=== PATIENT | male | born 1975 | race African-American/Black ===

== ENCOUNTER 2017-06-08 20:46 | Emergency (ER) | payer MEDICAID ==
[~2017-06-08] VITALS: Ht 177.8 cm; Wt 78.0 kg
[~2017-06-08 20:46] MED LIST: CATAPRES0.1 MG ORAL; FUROSEMIDE20 M1 ORAL
[2017-06-08 21:00] VITALS: BP 130/89
[2017-06-08] MEDS ORDERED: Nitroglycerin Subl 0.4mg tab SL PRN (21:45)
[2017-06-08 21:58] LABS: BASOPHILS % (AUTO) 1.5 % (0.0-2.0); EOSINOPHILS % (AUTO) 2.5 % (0.0-3.0); HEMATOCRIT 39.6 % (42.0-52.0); HEMOGLOBIN 11.7 G/DL (14.2-18.0); LYMPHOCYTES % (AUTO) 32.9 % (20.0-45.0); MEAN CORPUSCULAR VOLUME 83 FL (80-99); NEUTROPHILS % (AUTO) 57.1 % (45.0-75.0); PLATELET COUNT 333 K/UL (150-450); RED BLOOD COUNT 4.76 M/UL (4.70-6.10); RED CELL DISTRIBUTION WIDTH 18.4 % (11.6-14.8); WHITE BLOOD COUNT 8.5 K/UL (4.8-10.8)
[2017-06-08 22:05] VITALS: BP 127/87
[2017-06-08 22:11] LABS: ANION GAP 8 mmol/L (5-15); BLOOD UREA NITROGEN 22 mg/dL (7-18); CALCIUM 8.9 MG/DL (8.5-10.1); CARBON DIOXIDE 30 MMOL/L (21-32); CHLORIDE 105 MMOL/L (98-107); CREATININE 1.4 MG/DL (0.55-1.30); POTASSIUM 3.6 MMOL/L (3.5-5.1); SODIUM 143 MMOL/L (136-145)
[2017-06-08 22:28] LABS: ALANINE AMINOTRANSFERASE 34 U/L (12-78); ALBUMIN 2.9 G/DL (3.4-5.0); ALBUMIN/GLOBULIN RATIO 0.7 (1.0-2.7); ALKALINE PHOSPHATASE 75 U/L (46-116); ASPARTATE AMINO TRANSFERASE 31 U/L (15-37); BILIRUBIN,TOTAL 0.4 MG/DL (0.2-1.0); CKMB 1.2 NG/ML (0.0-3.6); CREATINE KINASE 148 U/L (26-308)
[2017-06-08] MEDS ORDERED: POTASSIUM CHLO10 MEQ ORAL (22:41)
[2017-06-08] MEDS ORDERED: FUROSEMIDE20 M1 ORAL (22:43)
[2017-06-08 22:50] VITALS: BP 128/87
[2017-06-08 23:00] VITALS: BP 128/87
--- NOTE | 2017-06-09 09:10 | Diagnostic Imaging Report ---
Indication: Shortness of breath Technique: One view of the chest Comparison: none Findings: The heart is enlarged. The lungs and pleural spaces are clear. The bones are unremarkable. Upper mediastinum is unremarkable Impression: Cardiomegaly. No acute process
--- NOTE | 2017-06-09 13:26 | Emergency Room Report ---
History of Present Illness General Chief Complaint: Chest Pain Source: Patient Present Illness HPI Patient is a 41-year-old male presented after having increased chest pain and difficulty breathing. Patient was having prior history of CVA as well as prior history of cardiac disease. He reports having previously been on Lasix but having been out of his medications for several days. patient states that he had been recently admitted to [facility]. Patient denies any fever. He reported having some difficulty with breathing. He denies any fever he reported having some leg swelling. Allergies: Coded Allergies: ACETAMINOPHEN (Verified Allergy, Unknown, 06/08/17) HALOPERIDOL (Verified Allergy, Unknown, 06/08/17) HYDROCODONE (Verified Allergy, Unknown, 06/08/17) LITHIUM (Verified Allergy, Unknown, 06/08/17) Patient History Past Medical History: see triage record Reviewed Nursing Documentation: PMH: Agreed, PSxH: Agreed Nursing Documentation-PMH Hx Cardiac Problems: Yes - chf History Of Psychiatric Problem: Yes Review of Systems All Other Systems: negative except mentioned in HPI Physical Exam Vital Signs Date Time Temp Pulse Resp B/P (MAP) Pulse Ox O2 Delivery O2 Flow Rate FiO2 06/08/17 20:38 98.1 87 16 125/83 100 Room Air Sp02 EP Interpretation: reviewed, normal General Appearance: normal inspection, well appearing, no apparent distress, alert, GCS 15 Head: atraumatic ENT: normal ENT inspection, hearing grossly normal, normal voice Neck: normal inspection, full range of motion, supple, no bony tend Respiratory: normal inspection, lungs clear, normal breath sounds, no respiratory distress, no retraction, no wheezing Cardiovascular #1: regular rate, rhythm, no edema Gastrointestinal: normal inspection, normal bowel sounds, non tender, soft, no guarding, no hernia Genitourinary: no CVA tenderness Musculoskeletal: normal inspection, back normal, normal range of motion Neurologic: normal inspection, alert, oriented x3, responsive, printed circuit boards beveler III-XII nml as tested, speech normal, motor weakness - left upper extremity Psychiatric: normal inspection, judgement/insight normal, mood/affect normal Skin: normal inspection, normal color, no rash Medical Decision Making Diagnostic Impression: Primary Impression: Chest pain Additional Impressions: CHF exacerbation Noncompliance with medication regimen ER Course Patient presented for chest pain.Differential diagnosis included but was not limited to acute coronary syndrome, pulmonary embolism, pneumonia, aortic dissection, shingles, pneumothorax, aortic dissection, esophageal rupture, pericarditis. Because of complexity of patient's case laboratory testing and imaging studies were ordered. EKG interpreted by me showed normal sinus rhythm with diffuse T wave inversion. I laboratory studies showed evidence of elevation of his BNP with normal troponin. The patient was given IV Lasix with large amount urine production. The patient subsequently stated that he felt better. Patient discharged home. 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 Chest x-ray one view read by radiology showed cardiac enlargement without evidence of infiltrate or pulmonary edema. The patient is advised to follow up with primary care doctor in 1-2 days. Patient is advised to return if any worsening condition or if any changes in status that are concerning. This report is dictated with [employer] mainspring strip inspector software which may occasionally lead to discrepancies related to use of this software. Labs Test 06/08/17 21:25 06/08/17 22:25 White Blood Count 8.5 K/UL (4.8-10.8) Red Blood Count 4.76 M/UL (4.70-6.10) Hemoglobin 11.7 G/DL (14.2-18.0) Hematocrit 39.6 % (42.0-52.0) Mean Corpuscular Volume 83 FL (80-99) Mean Corpuscular Hemoglobin 24.6 PG (27.0-31.0) Mean Corpuscular Hemoglobin Concent 29.6 G/DL (32.0-36.0) Red Cell Distribution Width 18.4 % (11.6-14.8) Platelet Count 333 K/UL (150-450) Mean Platelet Volume 6.5 FL (6.5-10.1) Neutrophils (%) (Auto) 57.1 % (45.0-75.0) Lymphocytes (%) (Auto) 32.9 % (20.0-45.0) Monocytes (%) (Auto) 6.0 % (1.0-10.0) Eosinophils (%) (Auto) 2.5 % (0.0-3.0) Basophils (%) (Auto) 1.5 % (0.0-2.0) Sodium Level 143 MMOL/L (136-145) Potassium Level 3.6 MMOL/L (3.5-5.1) Chloride Level 105 MMOL/L (98-107) Carbon Dioxide Level 30 MMOL/L (21-32) Anion Gap 8 mmol/L (5-15) Blood Urea Nitrogen 22 mg/dL (7-18) Creatinine 1.4 MG/DL (0.55-1.30) Estimat Glomerular Filtration Rate 56.1 mL/min (>60) Glucose Level 83 MG/DL (74-106) Calcium Level 8.9 MG/DL (8.5-10.1) Total Bilirubin 0.4 MG/DL (0.2-1.0) Aspartate Amino Transf (AST/SGOT) 31 U/L (15-37) Alanine Aminotransferase (ALT/SGPT) 34 U/L (12-78) Alkaline Phosphatase 75 U/L (46-116) Total Creatine Kinase 148 U/L (26-308) Creatine Kinase MB 1.2 NG/ML (0.0-3.6) Creatine Kinase MB Relative Index 0.8 Troponin I 0.018 ng/mL (0.000-0.056) Pro-B-Type Natriuretic Peptide 2936 pg/mL (0-125) Total Protein 6.9 G/DL (6.4-8.2) Albumin 2.9 G/DL (3.4-5.0) Globulin 4.0 g/dL Albumin/Globulin Ratio 0.7 (1.0-2.7) Urine Opiates Screen Negative (NEGATIVE) Urine Barbiturates Screen Negative (NEGATIVE) Phencyclidine (PCP) Screen Negative (NEGATIVE) Urine Amphetamines Screen Negative (NEGATIVE) Urine Benzodiazepines Screen Negative (NEGATIVE) Urine Cocaine Screen Negative (NEGATIVE) Urine Marijuana (THC) Screen Negative (NEGATIVE) Last Vital Signs Date Time Temp Pulse Resp B/P (MAP) Pulse Ox O2 Delivery O2 Flow Rate FiO2 06/08/17 23:00 87 16 128/87 100 Room Air 06/08/17 22:50 98.1 Status: improved Disposition: HOME, SELF-CARE Condition: Stable Scripts Furosemide* (LASIX*) 20 Mg Tablet 20 MG ORAL DAILY, #14 TAB Prov: Ricki Maki 06/08/17 Potassium Chloride* (K-DUR*) 10 Meq Capsule.er 10 MEQ ORAL DAILY, #7 TAB 0 Refills Prov: Ricki Maki 06/08/17 Referrals: NOT CHOSEN IPA/MD,REFERRING (PCP) Patient Instructions: Nonspecific Chest Pain Ricki Maki Jun 09, 2017 13:26
--- NOTE | 2017-06-10 19:08 | Cardiology Report ---
APPROVED REPORT EKG Measurement Heart [id number] Normal sinus rhythm Possible Left atrial enlargement T wave abnormality, consider inferolateral ischemia Abnormal ECG
== END 2017-06-08 23:10 | disposition home or self-care (01) ==
LOC: EDBD 20:46 → EMR 21:01
DX: R07.9 Chest pain, unspecified (principal); Z88.6 Allergy status to analgesic agent; Z88.8 Allergy status to other drugs, medicaments and biological substances; I50.9 Heart failure, unspecified; Z91.14 Patient's other noncompliance with medication regimen
CPT/HCPCS: 36415; 71045; 80053; 80307; 82550; 82553; 83880; 84484; 85025; 93005; 96374; 99284; J1940

== ENCOUNTER 2017-07-12 23:34 | Emergency (ER) | payer MEDICAID ==
[~2017-07-12] VITALS: Ht 170.2 cm; Wt 82.6 kg
[~2017-07-12 23:34] MED LIST changes: +POTASSIUM CHLO10 MEQ ORAL
--- NOTE | 2017-07-12 23:43 | Emergency Room Report ---
History of Present Illness General Source: Patient Present Illness HPI 41year-old male brought in by EMS where she will chief complaint of shortness of breath and "my CHF". Patient noncompliant with Lasix 40 mg last couple of days. Denies any worsening of ankle or leg swelling. Smokes marijuana just recently but no cocaine use. lungs ctab per EMS. [facility] called and said patient had JVD, however EMS denied that they ever told that to [facility]. Got nitro and ASA from EMS EMS rhythm strip did not show STEMI. Allergies: Coded Allergies: HALOPERIDOL (Verified Allergy, Unknown, 07/12/17) LITHIUM (Verified Allergy, Unknown, 07/12/17) Patient History Past Medical History: CHF Past Surgical History: none Pertinent Family History: none Social History: Reports: smoking, drug use Immunizations: UTD Reviewed Nursing Documentation: PMH: Agreed, PSxH: Agreed Review of Systems All Other Systems: negative except mentioned in HPI Physical Exam Sp02 EP Interpretation: reviewed, normal General Appearance: normal inspection, well appearing, no apparent distress, alert, GCS 15, non-toxic Head: normocephalic, atraumatic Eyes: bilateral eye PERRL, bilateral eye EOMI ENT: normal ENT inspection, hearing grossly normal, normal pharynx, no angioedema, normal voice, TMs + canals normal, uvula midline, moist mucus membranes Neck: normal inspection, full range of motion, supple, thyroid normal, no meningismus, no bony tend Respiratory: normal inspection, lungs clear, normal breath sounds, no rhonchi, no respiratory distress, no retraction, no accessory muscle use, no wheezing, speaking full sentences Cardiovascular #1: regular rate, rhythm, no edema, no JVD, normal capillary refill Gastrointestinal: normal inspection, normal bowel sounds, non tender, soft, no mass, no peritonitis, non-distended, no guarding, no hernia, no pulsatile mass Genitourinary: no CVA tenderness Musculoskeletal: normal inspection, back normal, normal range of motion, no calf tenderness, pelvis stable, Mary's Sign negative, other - L>R 1+ pitting edema to mid-conrad Neurologic: normal inspection, alert, oriented x3, responsive, shuttle buggy operator III-XII nml as tested, motor strength/tone normal, cerebellar normal, normal gait, speech normal Psychiatric: normal inspection, judgement/insight normal, mood/affect normal, no suicidal/homicidal ideation, no delusions Skin: normal inspection, normal color, no rash Lymphatic: normal inspection, no adenopathy Medical Decision Making Diagnostic Impression: Primary Impression: SOB (shortness of breath) Additional Impressions: CHF (congestive heart failure) Qualified Codes: I50.9 - Heart failure, unspecified CKD (chronic kidney disease) Qualified Codes: N18.9 - Chronic kidney disease, unspecified ER Course Got ASA and nitro from EMS BP in ED 132/80 Was given Lasix 40mg oral ECG with TWI in V3-6. 2, 3, AVF. No ST elevation or depression Was given 20mg lasix IV Labs: No leuks. H&H stable. Elevated pro-BNP in setting of elevated serumCr. Trop WNL CXR with ?mild pulm congestion However, o2 sat 100% on RQ Possible mild acute on chronic CHF exaceration Patient continued to act erratically, decided he "had to go see my doctor at [facility]" - asked for IV to be removed. Stated he felt better. Didnt want to wait for Lasix Rx refill. ER course: Patient has remained stable during ED stay. Disposition: Patient is to be discharged to home. Patient is instructed to follow up with their primary care doctor within 5 days. Strict return precautions discussed with patient such as fever, chills, worsening/severe pain, nausea, vomiting, which may indicate severe illness. Patient verbalizes understanding and agrees with plan. Please note that this Emergency Department Report was dictated using [employer] and [employer] greaser technology software, occasionally this can lead to erroneous entry secondary to interpretation by the dictation equipment EKG Diagnostic Results Rate: tachycardiac Rhythm: NSR ST Segments: no acute changes Other Impression Got ASA from EMS ASA given to the pt in ED: No Rhythm Strip Diag. Results EP Interpretation: yes Rate: 104 Rhythm: NSR, no PVC's, no ectopy Chest X-Ray Diagnostic Results Chest X-Ray Diagnostic Results : Chest X-Ray Ordered: Yes # of Views/Limited/Complete: 1 View Indication: Shortness of Breath EP Interpretation: Yes Interpretation: no pneumothorax, other - Cardiomegaly, bilateral mild pulm congestion Impression: No acute disease Electronically Signed by: Dr Johnie De La Paz MD Status: improved Disposition: HOME, SELF-CARE JOHNIE DE LA PAZ M.D. Jul 12, 2017 23:42
[2017-07-13] VITALS: BP 123/68
[2017-07-13 00:06] LABS: BASOPHILS % (AUTO) 1.4 % (0.0-2.0); EOSINOPHILS % (AUTO) 1.1 % (0.0-3.0); HEMATOCRIT 38.4 % (42.0-52.0); HEMOGLOBIN 12.5 G/DL (14.2-18.0); LYMPHOCYTES % (AUTO) 18.7 % (20.0-45.0); MEAN CORPUSCULAR VOLUME 81 FL (80-99); MONOCYTES % (AUTO) 11.8 % (1.0-10.0); PLATELET COUNT 235 K/UL (150-450); RED BLOOD COUNT 4.73 M/UL (4.70-6.10); RED CELL DISTRIBUTION WIDTH 18.9 % (11.6-14.8); WHITE BLOOD COUNT 9.9 K/UL (4.8-10.8)
[2017-07-13 00:13] LABS: ANION GAP 7 mmol/L (5-15); BLOOD UREA NITROGEN 21 mg/dL (7-18); CALCIUM 9.2 MG/DL (8.5-10.1); CARBON DIOXIDE 27 MMOL/L (21-32); CHLORIDE 102 MMOL/L (98-107); CREATININE 1.8 MG/DL (0.55-1.30); POTASSIUM 4.2 MMOL/L (3.5-5.1); SODIUM 136 MMOL/L (136-145)
[2017-07-13 00:23] LABS: ALANINE AMINOTRANSFERASE 33 U/L (12-78); ALBUMIN 3.4 G/DL (3.4-5.0); ALBUMIN/GLOBULIN RATIO 0.9 (1.0-2.7); ALKALINE PHOSPHATASE 69 U/L (46-116); ASPARTATE AMINO TRANSFERASE 42 U/L (15-37); BILIRUBIN,TOTAL 1.3 MG/DL (0.2-1.0)
[2017-07-13 00:30] LABS: BILIRUBIN,DIRECT 0.4 MG/DL (0.0-0.3)
[2017-07-13 00:40] VITALS: BP 123/68
--- NOTE | 2017-07-13 11:03 | Diagnostic Imaging Report ---
Indication: Reason For Exam: SOB Technique: One view of the chest Comparison: none Findings: The heart is enlarged. The lungs and pleural spaces are clear Impression: No acute process
--- NOTE | 2017-07-14 19:56 | Cardiology Report ---
APPROVED REPORT EKG Measurement Heart [id number] Normal sinus rhythm Possible Left atrial enlargement T wave abnormality, consider inferolateral ischemia Abnormal ECG
== END 2017-07-13 00:40 | disposition home or self-care (01) ==
LOC: EDBD → MERGE 07-13 00:14 → EMR 07-13 00:14
DX: I50.9 Heart failure, unspecified (principal); N18.9 Chronic kidney disease, unspecified; R06.02 Shortness of breath; Z88.8 Allergy status to other drugs, medicaments and biological substances; F17.200 Nicotine dependence, unspecified, uncomplicated; Z91.19 Patient's noncompliance with other medical treatment and regimen; F12.10 Cannabis abuse, uncomplicated
CPT/HCPCS: 36415; 71045; 80053; 82248; 83880; 84484; 85025; 93005; 96374; 99284; J1940